=== PATIENT | female | born 1985 | race Caucasian/White ===

== ENCOUNTER 2020-02-13 09:34 | Inpatient (IN) | payer OTHER ==
[~2020-02-13 09:34] MED LIST: Bupivacaine 0.25% HCL 30 ML VIAL ONE
[2020-02-13] MEDS ORDERED: HYDROcodone/Acetaminophen 5/325 mg Tablet PO PRN ×3 (09:39→21:54)
[2020-02-13] MEDS ORDERED: NS / Oxytocin 40 units/1000ml 1,000 ML IV PRN ×2 (09:39→12:34)
[2020-02-13] MEDS ORDERED: Acetaminophen 500 MG TAB PO PRN (09:39)
[2020-02-13] MEDS ORDERED: Docusate 100 MG CAP PO PRN (09:39)
[2020-02-13] MEDS ORDERED: Promethazine HCl 25 MG/ML VIAL IM PRN ×2 (09:39→14:12)
[2020-02-13] MEDS ORDERED: Misoprostol 200 MCG TAB PR PRN (09:39)
[2020-02-13] MEDS ORDERED: hydrALAZINE 20 MG/ML VIAL SLOW IVP PRN (09:39)
[2020-02-13] MEDS ORDERED: Diphenoxylate HCl/Atropine Tablet PO PRN ×2 (09:39)
[2020-02-13] MEDS ORDERED: Ibuprofen 800 MG TAB PO PRN (09:39)
[2020-02-13] MEDS ORDERED: Butorphanol Tartrate 1 MG/ML VIAL SLOW IVP PRN (09:39)
[2020-02-13] MEDS ORDERED: Lidocaine 1% (PF) 30 ML VIAL SC PRN ×2 (09:39→12:34)
[2020-02-13] MEDS ORDERED: Ondansetron PF 4 MG/2 ML Vial IVP PRN ×2 (09:39→14:12)
[2020-02-13] MEDS ORDERED: CEFAZOLIN 2 GM in Premix Bag 1 BAG IVPB SCH ×2 (09:45→17:00)
[2020-02-13] MEDS: Lactated Ringer's 1,000 ML IV SCH (10:15)
[2020-02-13 10:45] VITALS: BMI 32.1
[2020-02-13] MEDS ORDERED: FLU VACC QS2020-21(6MOS UP)/PF 60 MCG/0.5 ML SYRINGE IM ONE (11:00)
[2020-02-13 11:04] LABS: Hemoglobin 11.3 g/dL (12.0-16.0); Mean Corpuscular HGB CONC 33.4 g/dL (32.0-36.0); Mean Corpuscular Hemoglobin 29.1 pg (27.0-31.0); Mean Corpuscular Volume 87.2 fL (78.0-98.0); Mean Platelet Volume 7.9 fL (7.4-10.4); Platelet Count 261 thou/uL (130-400); RBC Distribution Width 12.3 % (11.5-14.5); Red Blood Cell (RBC) Count 3.89 mill/uL (4.20-5.40); White Blood Cell (WBC) Count 7.6 thou/uL (4.8-10.8)
[2020-02-13 11:44] LABS: Syphilis Antibody Nonreactive (Nonreactive); Syphilis Antibody Index 0.02 S/CO (<1.00 Non-Reactive)
[2020-02-13 11:45] LABS: HBSAg Index 0.14 S/CO (0-0.99); Hep B Surf Ag Non-Reactive S/CO (NonReactive)
[2020-02-13] MEDS ORDERED: NS w/ Oxytocin 10 units 500 ML ONE (12:40)
[2020-02-13] MEDS ORDERED: NS w/ Oxytocin 10 units 500 ML IV SCH (12:45)
[2020-02-13] MEDS ORDERED: Fentanyl 4 mcg/Bup 0.1% Cadd 100 ML ONE (13:09)
[2020-02-13] MEDS ORDERED: ceFAZolin 1 GM/D5W 1 GM in Premix Bag 1 BAG IVPB SCH ×2 (14:00→23:00)
[2020-02-13] MEDS ORDERED: Naloxone HCl 0.4 mg/ml Vial IVP PRN ×2 (14:12)
[2020-02-13] MEDS ORDERED: Lactated Ringer's 500 ML IV PRN (14:12)
[2020-02-13] MEDS ORDERED: Acetaminophen 325 MG TAB PO PRN ×2 (14:12→21:45)
[2020-02-13] MEDS ORDERED: diphenhydrAMINE 50 MG/ML VIAL IVP PRN (14:12)
[2020-02-13] MEDS ORDERED: EPHEDRINE 25 MG/5 ML SYRINGE SLOW IVP PRN (14:12)
[2020-02-13] MEDS ORDERED: Fentanyl 4 mcg/Bupivacaine 0.1% Cassette 100 ML EPIDURAL SCH (14:15)
[2020-02-13] MEDS ORDERED: Communication Order-Pharmacy FS SCH (14:15)
[2020-02-13] MEDS ORDERED: Lidocaine 1% (PF) 30 ML VIAL ONE (16:18)
[2020-02-13] MEDS ORDERED: NS / Oxytocin 40 units/1000ml 1,000 ML ONE (16:18)
[2020-02-13 19:06] LABS: SARS-CoV-2 MS2 Positive; SARS-CoV-2 N Gene Negative; SARS-CoV-2 S Gene Negative; SARS-CoV-2 by NAA Not Detected (NotDetected); SARS-CoV-2 orf1ab Negative
[2020-02-13] MEDS ORDERED: Benzocaine-Menthol 82.5 ML CAN TOP PRN (21:45)
[2020-02-13] MEDS ORDERED: diphenhydrAMINE 25 MG CAP PO PRN (21:45)
[2020-02-13] MEDS ORDERED: Lanolin Ointment 7 GM TUBE TOP PRN (21:45)
[2020-02-13] MEDS: Ibuprofen 800 MG TAB PO SCH (21:59)
[2020-02-13] MEDS: Sodium Chloride 0.9% 10 ML ONE ×2 (23:46→23:50)
[2020-02-13] MEDS ORDERED: Sodium Chloride 0.9% 10 ML ONE (23:49)
[2020-02-14] MEDS: Ibuprofen 800 MG TAB PO SCH ×3 (05:04→20:29)
[2020-02-14] MEDS: HYDROcodone/Acetaminophen 5/325 mg Tablet PO PRN ×2 (05:04→08:58)
[2020-02-14] MEDS: Prenatal Vitamin 1 TAB PO SCH (08:58)
[2020-02-14] MEDS: Docusate Calcium (SURFAK) 240 MG CAP PO SCH (08:58)
[2020-02-14] MEDS: Ferrous Sulfate 325 MG TAB PO SCH (08:59)
[2020-02-14 14:18] LABS: Hemoglobin 8.8 g/dL (12.0-16.0)
[2020-02-14] MEDS: Lactated Ringer's 1,000 ML IV SCH (18:20)
[2020-02-15] MEDS: Docusate Calcium (SURFAK) 240 MG CAP PO SCH ×2 (01:44→09:19)
[2020-02-15] MEDS: Ferrous Sulfate 325 MG TAB PO SCH ×2 (01:45→09:19)
[2020-02-15] MEDS: Ibuprofen 800 MG TAB PO SCH (05:12)
[2020-02-15 08:15] VITALS: BP 141/71; TEMP 98.1
[2020-02-15] MEDS: Prenatal Vitamin 1 TAB PO SCH (09:19)
== END 2020-02-15 11:34 | disposition home or self-care (01) | DRG 807 ==
LOC: L&D 09:34 → 3SW 20:42
PROVIDERS: ADMIT Obstetrics & Gynecology; ATTEND Obstetrics & Gynecology
PROC: 10E0XZZ Delivery of Products of Conception, External Approach (ICD-10-PCS; principal; 2020-02-13)
PROC: 0KQM0ZZ Repair Perineum Muscle, Open Approach (ICD-10-PCS; 2020-02-13)
PROC: 10907ZC Drainage of Amniotic Fluid, Therapeutic from Products of Conception, Via Natural or Artificial Opening (ICD-10-PCS; 2020-02-13)
DX: O99.824 Streptococcus B carrier state complicating childbirth (principal); Z37.0 Single live birth; Z3A.37 37 weeks gestation of pregnancy; K58.9 Irritable bowel syndrome, unspecified; O99.62 Diseases of the digestive system complicating childbirth; O99.344 Other mental disorders complicating childbirth; F31.9 Bipolar disorder, unspecified; O72.1 Other immediate postpartum hemorrhage; O70.1 Second degree perineal laceration during delivery; O71.82 Other specified trauma to perineum and vulva; Z88.0 Allergy status to penicillin; Z79.899 Other long term (current) drug therapy; Z14.1 Cystic fibrosis carrier
CPT/HCPCS: 36415; 51702; 85014; 85018; 85027; 86780; 86850; 86900; 86901; 87340; 87635; J0690; J2001; J2590; S0020; U0003

== ENCOUNTER 2021-01-28 19:19 | Emergency (ER) | payer OTHER ==
[2021-01-28] MEDS ORDERED: Magnesium Citrate 300 ML BOT ONE (21:38)
== END 2021-01-28 22:02 | disposition home or self-care (01) ==
LOC: ERS 19:19
DX: K59.00 Constipation, unspecified (principal)
CPT/HCPCS: 99283